=== PATIENT | female | born 1970 | race Caucasian/White ===

== ENCOUNTER 2019-06-23 20:49 | Emergency (ER) | payer MEDICAID, SELFPAY ==
[2019-06-23 20:50] VITALS: BP 129/86; PULSE 97; RESP 18; TEMP 36.3; O2SAT 98; BMI 34.3
--- NOTE | 2019-06-23 20:54 | RAD_ITS ---
STUDY: X-RAY - LEFT SHOULDER REASON FOR EXAM: Female, 48 years old. PAIN TECHNIQUE: 4 view(s) of the shoulder. COMPARISON: None. FINDINGS: Normal glenohumeral articulation. Normal acromioclavicular joint. Normal acromion. Normal humeral head and visualized proximal humerus. The soft tissue structures are unremarkable. Normal visualized pulmonary apex. RAD/Shoulder min 2 Views IMPRESSION: Within normal limits x-ray examination of the shoulder. Electronically Signed: Myesha Carter MD at 22:30 EST Tel , Service support ,
--- NOTE | 2019-06-23 23:04 | ED.DCSUM_ITS ---
- ER Visit Summary Date of Service: 06/23/19 Chief Complaint: Left shoulder pain History of Present Illness: The patient is a 48 F with left shoulder pain 2 weeks ago and then again over the last few days. The pain radiates into her left neck and she has paresthesias into her left forearm. Denies fever or systemic symptoms. Denies chest pain or shortness of breath. The only abnormal finding she had otherwise was a lump to her left scapular region. This came up fairly suddenly over the last couple days. Physical Examination: Afebrile and vital signs are unremarkable. Left shoulder shows normal inspection. Good range of motion. Neurovascular intact distally except for subjective paresthesias, primarily in her left forearm. Strong and equal pulses. Good strength. Skin normal. There is a palpable area of induration in the subcutaneous location over her left lateral scapula, approximately 2 to 3 cm in greatest diameter. This is slightly tender. The overlying skin is normal. Test Results: X-rays unremarkable. Emergency Department Course and Treatment: Patient has a soft tissue lesion. I do not believe this is causing her pain and paresthesias. I am not sure if this was an incidental finding given her pain, but the patient is confident that it is a new finding. Nothing to suggest abscess. This may be myofascial, possible small hematoma. No indication for further soft tissue imaging emergently. This may be managed as an outpatient. X-rays of her shoulder were unremarkable. Patient has no neck tenderness. No chest tenderness or pain. No shortness of breath. No further imaging was indicated. Patient likely has a radiculopathy. Patient will be treated with pain medicine. She cannot take steroids because of her diabetes and cannot take anti-inflammatories because they cause bleeding for her. She will follow-up with her PCP for outpatient management of this. Return for any new or worsening issues. Treatment Plan: As above Disposition: Discharge Impression: 1. Left shoulder pain This note was generated with [employer] software. It may contain incorrect words, spelling, and punctuation that were not noted in review of the chart prior to signing ED Disposition - Plan for ED Patient: Referrals: Ezekiel Huggins MD [Primary Care Provider] -
--- NOTE | 2019-06-23 23:07 | ED.DEP ---
ED Disposition - Plan for ED Patient: Instructions: Shoulder Sprain Prescriptions: Oxycodone HCl/Acetaminophen [Percocet 5/325] 1 tab PO Q6H PRN PRN 3 Days #12 tab PRN Reason: Pain Prescription Printed Referrals: Ezekiel Huggins MD [Primary Care Provider] -
[2019-06-23] MEDS: oxyCODONE 5 MG Tablet 10 MG PO (23:15)
== END 2019-06-23 23:35 | disposition home or self-care (01) ==
PROVIDERS: Emergency Provider Emergency Medicine; Family Provider Family Medicine; PCP Family Medicine
DX: M25.512 Pain in left shoulder (principal)
CPT/HCPCS: 73030; 99283

== ENCOUNTER 2020-05-13 20:22 | Emergency (ER) | payer MEDICAID, SELFPAY ==
[2020-05-13 20:23] VITALS: BP 130/75; PULSE 82; RESP 16; TEMP 35.5; O2SAT 99; BMI 33.0
--- NOTE | 2020-05-13 20:40 | ED.DCSUM_ITS ---
- ER Visit Summary Date of Service: 05/13/20 Chief Complaint: Dental pain History of Present Illness: The patient is a 49 F who presents with right-sided dental pain that is been constant for the past 3 weeks. Patient describes her pain is dull and throbbing but sharp at times. Patient states it is over the right upper and lower teeth area. Patient states she has followed up with her dentist to has adjusted her dentures. Patient states this has not been helping. Patient states she was on a course of antibiotics. Patient states she has been taking Tylenol and ibuprofen with no improvement. Patient states her pain is worse with any chewing. Patient also admits to cold sensitivity. Patient also admits to swelling of her jaw. Physical Examination: Vital signs are stable. Patient is afebrile. Patient is in no acute distress. Oral mucosa is pink and moist. Oropharynx is clear. Airway is patent. There are no exudates noted. There is some mild edema of the gingiva of the right upper and lower molar areas. There is no fluctuance. There is no evidence of any abscess. There is no sublingual edema or tenderness. There is no evidence of any Amador's angina. Neck is supple. Trachea is midline. There is no JVD or lymphadenopathy. Heart was regular rate and rhythm. Lungs are clear and equal bilaterally. Cranial nerves II through XII are intact. There are no focal motor or sensory deficits. Emergency Department Course and Treatment: Patient was given a dose of [place] and Augmentin here. Patient was given prescriptions for Augmentin and [place]. Patient was instructed to drink plenty of fluids. Patient was instructed to follow-up with her dentist in 3 to 5 days. Patient understood and was agreeable with the plan. All questions were answered. Disposition: Discharge home Impression: 1. Odontalgia This note was generated with [employer] dictation software. It may contain incorrect words, spelling, and punctuation that were not noted in review of the chart p rior to signing ED Disposition - Plan for ED Patient: Disposition: Home or Assisted Living Diagnosis: Odontalgia Instructions: ED Tooth Pain Prescriptions: Amox/Clavulanate Tablet [Augmentin Tablet] 875 mg PO Q12H #20 tab Prescription Printed Hydrocodone Bitart/Apap 5-325 [[place] 5MG-325MG] 1 tab PO Q6H PRN PRN 3 Days #10 tab PRN Reason: Pain Prescription Printed Referrals: Ezekiel Huggins MD [Primary Care Provider] - 3-5 Days Dentist,Your [STAFF PHYSICIAN] - 3-5 Days
[2020-05-13] MEDS: HYDROcodone Bitartrate/Apap 5/325 Tablet PO (20:48)
[2020-05-13] MEDS: Amox/Clavulanate 875 MG Tablet PO (20:48)
[2020-05-13 20:55] VITALS: RESP 16
== END 2020-05-13 20:56 | disposition home or self-care (01) ==
PROVIDERS: Emergency Provider Emergency Medicine; PCP Family Medicine
DX: K08.89 Other specified disorders of teeth and supporting structures (principal); R51.9 Headache, unspecified; M10.9 Gout, unspecified; M79.7 Fibromyalgia; M54.9 Dorsalgia, unspecified; G89.29 Other chronic pain; E03.9 Hypothyroidism, unspecified; E11.9 Type 2 diabetes mellitus without complications; F17.210 Nicotine dependence, cigarettes, uncomplicated
CPT/HCPCS: 99283

== ENCOUNTER 2021-01-02 13:13 | Emergency (ER) | payer MEDICAID, SELFPAY ==
[2021-01-02 13:14] VITALS: BP 99/67; PULSE 76; RESP 20; TEMP 36.6; O2SAT 98; BMI 32.9
[2021-01-02] MEDS: Ondansetron 4 MG/2 ML Vial IV (14:27)
[2021-01-02] MEDS: Dicyclomine 10 MG Capsule 20 MG PO (14:27)
[2021-01-02 14:43] LABS: Absolute Lymphocyte Count 2.67 X10^3/uL (0.83-4.51); Absolute Neutrophil Count 5.9 X10^3/uL (2.0-7.7); Basophil# 0.08 X10^3/uL; Basophil% 0.8 % (0-1); Eosinophil# 0.76 X10^3/uL; Eosinophils% 7.5 % (0-5); Hematocrit 51.5 % (37-47); Hemoglobin 17.2 g/dL (12.0-15.0); Lymphocyte # 2.67 X10^3/ul (0.83-4.51); Lymphocyte % 26.4 % (19-41); Mean Corp Hgb Conc 33.4 g/dL (32-36); Mean Corpuscular Hgb 31.3 pg (27.0-32.0); Mean Corpuscular Volume 93.6 fL (81-99); Mean Platelet Vol. 11.2 fl (6.2-12.0); Monocyte# 0.63 X10^3/uL; Monocyte% 6.2 % (0-10); NRBC Flagged by Analyzer 0 % (0-5); Neutrophil # 5.94 X10^3/uL (2.7-7.7); Neutrophil % 58.7 % (47-70); Platelet Count 234 K/mm3 (150-450); RBC Distribution Width CV 13.3 % (11.6-14.6); RBC Distribution Width SD 45.8 fl (35.1-43.9); White Blood Count 10.1 K/mm3 (4.4-11.0)
--- NOTE | 2021-01-02 14:49 | EDS_ITS ---
HPI HPI - GI History of Present Illness Chief Complaint: Abd Pain Informant: patient Abdominal Pain/Flank Pain Onset: Month(s) Context: Gradual Onset Timing: Continuous and Waxes and wanes Quality: Aching Location: RUQ and Right Flank Current Severity: Severe Maximum Severity: Severe Worsened by: Nothing Relieved by: Nothing Nausea/Vomiting/Emesis GI Symptom: Positive for Nausea; Negative for Vomiting Onset: Month(s) Severity: Moderate Diarrhea/Melena/Hematochezia GI Symptom: Positive for Diarrhea (X3 months. Patient's had extensive outpatient work-up. The only abnormality is a low TSH in October and November) Onset: Month(s) Stool Quality: Positive for Loose and Watery Severity: Severe Associated Symptoms Associated Symptoms: Negative for Dysuria, Frequency, Hematuria and Urgency Narrative Narrative: Patient is a 50-year-old heavyset woman who presents with abdominal pain for the past 3 months and diarrhea. She has had an extensive work-up which included ultrasound, blood work, stool for O&P, bacteria, C. difficile and antigen for celiac sprue. All tests were negative. The only test that is abnormal was a low TSH beginning of October and beginning of November. The level in November was even lower. Of note she is on levofloxacin. She has not had her dose change recently. She does report weight loss, heat intolerance as well as the abdominal pain with diarrhea. 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 She reports to gastroenterology has not called back. She has not had a colonoscopy nor she been scheduled for colonoscopy. Prior similar symptoms: Yes Recent Illness/Hospitalization: Yes [facility] Medical History Depression Diabetes Gout Hypothyroid Spinal cord stimulator status Home Medications albuterol sulfate 2 puff INHALATION Q4H PRN PRN 06/23/19 [History Last Taken Unknown] allopurinol 100 mg PO DAILY 06/23/19 [History Last Taken Unknown] levothyroxine 50 mcg PO DAILY 06/23/19 [History Last Taken Unknown] liraglutide 1 unit PO DAILY 06/23/19 [History Last Taken Unknown] metformin 1,000 mg PO DAILY 06/23/19 [History Last Taken Unknown] propranolol 40 mg PO BID 06/23/19 [History Last Taken Unknown] spironolactone 100 mg PO DAILY 06/23/19 [History Last Taken Unknown] zolpidem 10 mg PO DAILY 06/23/19 [History Last Taken Unknown] amoxicillin-pot clavulanate 875 mg PO Q12H #20 tab 05/13/20 [Rx Last Taken Unknown] sertraline 100 mg PO DAILY 05/13/20 [History Last Taken Unknown] levothyroxine 25 mcg PO DAILY #30 cap 01/02/21 [Rx Last Taken Unknown] Allergy/AdvReac Type Severity Reaction Status Date / Time pregabalin [From Lyrica] Allergy Hives Verified 01/02/21 13:15 adhesive tape AdvReac Rash Verified 01/02/21 13:15 duloxetine [From Cymbalta] AdvReac Hives Verified 01/02/21 13:15 NSAIDS (Non-Steroidal AdvReac Bleeding Verified 01/02/21 13:15 Anti-Inflamma Surgical History H/O: hysterectomy Social History (Updated 01/02/21 @ 14:[address] Sharan Francis MD) household members: spouse Smoking Status: Current every day smoker tobacco type: cigarettes alcohol intake: current alcohol intake frequency: holidays/special occasions only substance use type: does not use ROS ROS ED Constitutional Constitutional ED: Reports sweats and weight loss; Denies chills, fever(s) or subjective ENT ENT ED: Denies ear pain, rhinorrhea or sore throat Cardiovascular Cardiovascular: Denies chest pain, orthopnea, palpitations or racing heartbeat Respiratory/Chest Respiratory/Chest: Denies cough, dyspnea, dyspnea on exertion or orthopnea Gastrointestinal Gastrointestinal: Reports abdominal pain, diarrhea and nausea; Denies constipation, melena or vomiting Genitourinary Genitourinary ED: Denies dysuria, hematuria or urinary frequency Musculoskeletal Musculoskeletal: Denies arthralgias, back pain, myalgias or neck pain Integumentary Denies rash Neurologic Neurologic: Denies headache(s), paresthesias or weakness Psychiatric Psychiatric: Denies suicidal thoughts Endocrine Endocrinology: Reports other Details: Does admit to the heat intolerance. ; Denies polydipsia, polyphagia or polyuria Hematologic/Lymphatic Hematologic/Lymphatic: Denies easy bruising EXAM Physical Exam Const Vital Signs: 01/02/21 13:14 Temperature 97.8 F Temperature Source Temporal Pulse Rate 76 Respiratory Rate 20 H Blood Pressure 99/67 Blood Pressure Mean 77 Pulse Ox 98 Oxygen Delivery Method Room Air Positive well nourished, well developed and obese General Appearance ED: well developed; Negative for pallor Nutritional Appearance: obese HEENT Reports moist mucous membranes HEENT Narrative: Nares patent. Face is symmetric. normocephalic and atraumatic Eyes PERRL and EOMs intact bilaterally General Eye ED: Negative for pale conjunctiva or scleral icterus Neck no lymphadenopathy, supple and no JVD Resp normal respiratory effort and clear to auscultation bilaterally Cardio regular rate, regular rhythm, S1 normal heart sound, S2 normal heart sound and no murmurs GI non-tender and non-distended Auscultation: hyperactive bowel sounds; Negative for normoactive bowel sounds Palpation: soft; Negative for hepatomegaly or splenomegaly Back/Spine no CVA tenderness Lumbar Spine / Lower Back: Negative for lumbar spinal tenderness Extremity full ROM General Extremety ED: Negative for edema or tenderness General Extremity: Negative for edema Neuro CN's II-XII intact bilaterally, moves all extremities and no sensory deficits noted Sensorium / Orientation: alert, oriented to person, oriented to place and oriented to time Motor Exam: strength 5/5 throughout Psych mental status grossly normal Skin no wounds General Skin Exam: Negative for jaundice or pallor Lesions: no lesions Rashes: no rashes MDM MDM MDM Narrative Medical decision making narrative: Blood work was obtained to assess renal function, potassium in light of the amount of diarrhea. Suspect her symptoms are due to her thyroid medication not being adjusted since she has had low levels. Lab Data Attestation: I reviewed the patient's lab results. Lab results narrative: Patient's TSH today is lower than previous. Patient's symptoms are consistent with hyperthyroidism. She is presently on 50 mcg of levofloxacin. Patient was informed to discontinue the levofloxacin for 2 to 3 days. Will start on lower dose. Labs: Laboratory Results - last 24 hr 01/02/21 01/02/21 14:29 14:29 WBC 10.1 RBC 5.50 H Hgb 17.2 H Hct 51.5 H MCV 93.6 MCH 31.3 MCHC 33.4 RDW Std Deviation 45.8 H RDW Coeff of [place] 13.3 Plt Count 234 MPV 11.2 Immature Gran % (Auto) 0.400 Neut % (Auto) 58.7 Lymph % (Auto) 26.4 Towns % (Auto) 6.2 Eos % (Auto) 7.5 H Baso % (Auto) 0.8 Absolute Neuts (auto) 5.9 Absolute Lymphs (auto) 2.67 Nucleated RBC % 0 Sodium 135 L Potassium 4.0 Chloride 103 Carbon Dioxide 27.0 Anion Gap 5 BUN 13 Creatinine 0.86 Estim Creat Clear Calc 64.74 Est GFR (MDRD) Af Amer 90 Est GFR (MDRD) Non-Af 74 BUN/Creatinine Ratio 15.1 Glucose 124 H Calcium 9.5 TSH 0.16 L Discharge Plan Triage Chief Complaint: Abd Pain ED Provider: Sharan Francis Dx/Rx/DC Orders Clinical Impression: Hyperthyroidism Instructions: When You Have Hyperthyroidism, Thyroid-Stimulating Hormone Prescriptions: New levothyroxine 25 mcg capsule 25 mcg PO DAILY Qty: 30 RF: 0 No Action spironolactone 100 MG tablet 100 mg PO DAILY RF: 0 allopurinol 100 tablet 100 mg PO DAILY RF: 0 propranolol 40 MG tablet 40 mg PO BID RF: 0 levothyroxine 50 MCG tablet 50 mcg PO DAILY RF: 0 metformin 1,000 MG tablet 1,000 mg PO DAILY RF: 0 zolpidem 10 MG tablet 10 mg PO DAILY RF: 0 albuterol sulfate 1 PUFF inhaler 2 puff inhalation Q4H PRN PRN (Reason: Sob &/Or Wheezing) RF: 0 liraglutide 18 pen injector 1 unit PO DAILY RF: 0 sertraline 100 MG tablet 100 mg PO DAILY RF: 0 amoxicillin-pot clavulanate 875 MG tablet 875 mg PO Q12H Qty: 20 RF: 0 Primary Care Provider: Ezekiel Huggins Referrals: Ezekiel Huggins MD [Primary Care Provider] - 1-2 Weeks (TSH is low. Prior to TSH levels were low. Suspect patient's constellation symptoms is due to hyperthyroidism-like symptoms due to the levothyroxine. Her dose was held and restarted at lower level.) Activity Restrictions/Additional Instructions: 1. Discontinue the 50 mcg levothyroxine tablets 2. Resume new prescription for levothyroxine 25 mcg starting on Tuesday 3. Contact Dr. Huggins for blood test in 2 weeks Disposition Disposition: Home, Self Care
[2021-01-02 15:08] LABS: Anion Gap 5 (5-15); BUN 13 mg/dL (7-18); BUN/Creat Ratio 15.1 RATIO (10-20); Calcium,Total 9.5 mg/dL (8.5-10.1); Chloride 103 mmol/L (98-107); Creatinine, Serum 0.86 mg/dL (0.55-1.02); EST Glomerular Filtration Rate 74 mL/min (>60); Est Glom Filt Rate - Afr Amer 90 mL/min (>60); Estimated Creatinine Clearance 64.74 ml/min; Glucose 124 mg/dL (74-106); Sodium Level 135 mmol/L (136-145); Thyroid Stim Hormone (TSH) 0.16 uIU/mL (0.358-3.74)
[2021-01-02 16:48] VITALS: BP 96/64; PULSE 71; RESP 16; O2SAT 97
--- NOTE | 2021-01-02 16:49 | ED.RN ---
THIS NURSE REVIEWED D/C INSTRUCTIONS WITH PT. PT VERBALIZED UNDERSTANDING OF INSTRUCTIONS. IV D/C. IV CATHETER INTACT. PT TOLERATED WELL. PT DENIES FURTHER NEEDS OR QUESTIONS AT THIS TIME
== END 2021-01-02 16:49 | disposition home or self-care (01) ==
PROVIDERS: Emergency Provider Emergency Medicine; PCP Family Medicine
DX: E05.90 Thyrotoxicosis, unspecified without thyrotoxic crisis or storm (principal); E66.9 Obesity, unspecified; F17.210 Nicotine dependence, cigarettes, uncomplicated
CPT/HCPCS: 80048; 84443; 85025; 96374; 99283; A4216; J2405

== ENCOUNTER 2021-04-30 10:29 | Emergency (ER) | payer MEDICAID, SELFPAY ==
[2021-04-30 10:30] VITALS: BP 120/72; PULSE 89; RESP 16; TEMP 35.7; O2SAT 96; BMI 32.9
--- NOTE | 2021-04-30 10:59 | US_ITS ---
STUDY: ABDOMINAL ULTRASOUND - RIGHT UPPER QUADRANT REASON FOR VISIT: Female, 50 years old RUQ pain TECHNIQUE: Ultrasound evaluation of the right upper quadrant was performed with real-time and static headley-scale imaging. TECHNICAL QUALITY: Limited. The patient was not fasting. COMPARISON: None. FINDINGS: Liver: The liver is enlarged and measures 23 cm. There is increased echogenicity consistent with fatty infiltration. The bile ducts are within normal limits. There is hepatic color flow. The direction of portal flow is hepatopetal. There is no demonstrated mass lesion. Gallbladder: Normal distended gallbladder. The gallbladder wall measures 2.1 mm. There is a negative sonographic Zaman''s sign. There is no pericholecystic fluid. There are no gallstones. Common Bile Duct (C.B.D.): The common bile duct measures 3.8 mm. Pancreas: Normal size of the head, body and tail of the pancreas. There is normal echogenicity of the pancreas. There is no demonstrated pancreatic mass or cyst. Right Kidney: Normal size of the right kidney. The right kidney measures 12.6 cm x 5.3 cm x 4.4 cm. Normal renal cortex. The right cortex measures 1.2 cm. There is no demonstrated renal mass or cyst. There is no right hydronephrosis. US/Gallbladder IMPRESSION: Hepatomegaly and fatty infiltration of the liver. Electronically Signed: Curt Sparks MD at 12:08 EDT , Service support ,
[2021-04-30] MEDS: Ondansetron 4 MG/2 ML Vial IV (11:12)
[2021-04-30] MEDS: Morphine 4 MG/ML Syringe IV ×2 (11:12→13:16)
[2021-04-30 11:26] LABS: Bacteria 0 SEEN /hpf (None Seen); Mucous, Urine 0 SEEN /hpf (<or=2+); Red Blood Cells-Urine 0 SEEN /hpf (0-5); Squamous Epithelial Cells - UA 0 SEEN /hpf (5-10); White Blood Cells 0 SEEN /hpf (0-5)
[2021-04-30 11:31] LABS: Absolute Lymphocyte Count 2.24 X10^3/uL (0.83-4.51); Absolute Neutrophil Count 7.4 X10^3/uL (2.0-7.7); Basophil# 0.05 X10^3/uL; Basophil% 0.5 % (0-1); Eosinophil# 0.11 X10^3/uL; Eosinophils% 1.1 % (0-5); Hematocrit 48.7 % (37-47); Hemoglobin 16.1 g/dL (12.0-15.0); Lymphocyte # 2.24 X10^3/ul (0.83-4.51); Lymphocyte % 21.5 % (19-41); Mean Corp Hgb Conc 33.1 g/dL (32-36); Mean Corpuscular Hgb 31.2 pg (27.0-32.0); Mean Corpuscular Volume 94.4 fL (81-99); Mean Platelet Vol. 11.2 fl (6.2-12.0); Monocyte# 0.63 X10^3/uL; NRBC Flagged by Analyzer 0 % (0-5); Neutrophil # 7.35 X10^3/uL (2.7-7.7); Neutrophil % 70.5 % (47-70); Platelet Count 194 K/mm3 (150-450); RBC Distribution Width CV 13.3 % (11.6-14.6); RBC Distribution Width SD 46.4 fl (35.1-43.9); Red Blood Count 5.16 M/mm3 (4.2-5.4); White Blood Count 10.4 K/mm3 (4.4-11.0)
[2021-04-30 11:46] LABS: ALB/GLOB Ratio 0.8 RATIO (0.9-2.4); AST(SGOT) 29 U/L (15-37); Alanine Aminotransfer ALT/SGPT 71 U/L (13-56); Albumin, Serum 3.5 g/dL (3.2-5.0); Alkaline Phosphatase 96 U/L (45-117); Anion Gap 13 (5-15); BUN 15 mg/dL (7-18); BUN/Creat Ratio 13.6 RATIO (10-20); Calcium,Total 9.4 mg/dL (8.5-10.1); Chloride 100 mmol/L (98-107); EST Glomerular Filtration Rate 56 mL/min (>60); Est Glom Filt Rate - Afr Amer 68 mL/min (>60); Estimated Creatinine Clearance 50.61 ml/min; Globulin 4.3 g/dL (2.2-4.2); Glucose 321 mg/dL (74-106); Lipase 238 U/L (73-393); Potassium 4.2 mmol/L (3.5-5.1); Protein, Total 7.8 g/dL (6.4-8.2); Sodium Level 136 mmol/L (136-145)
[2021-04-30 11:52] LABS: Color, Urine Yellow (Yellow); Glucose, Dipstick 1000 mg/dl (Normal); Ketone-Dipstick Negative (Negative); Leukocyte Esterase-Dipstick Negative /ul (Negative); Nitrite-Dipstick Negative (Negative); Occult Blood-Urine Negative /ul (Negative); Protein-Dipstick Negative (Negative); Urine Bilirubin Dipstick Negative (Negative); Urine Clarity Clear (Clear); Urine Urobilinogen Normal (Normal)
[2021-04-30 12:48] VITALS: BP 107/66; O2SAT 92
--- NOTE | 2021-04-30 12:50 | EDS_ITS ---
HPI HPI - GI History of Present Illness Chief Complaint: Abd Pain Informant: patient Abdominal Pain/Flank Pain Onset: Month(s) (1-2) Context: Gradual Onset Timing: Waxes and wanes Quality: Aching Location: RUQ (With radiation into right low back as well as up to parascapular/shoulder area) Current Severity: Severe Maximum Severity: Severe Worsened by: Nothing Relieved by: Nothing Nausea/Vomiting/Emesis GI Symptom: Positive for Nausea; Negative for Vomiting Diarrhea/Melena/Hematochezia GI Symptom: Negative for Diarrhea, Melena and Hematochezia Associated Symptoms Associated Symptoms: Negative for Dysuria, Frequency, Hematuria and Urgency Narrative Narrative: Patient presenting for worsening right upper quadrant pain that has been there for several months. She states she was seen in an emergency department for this right upper quadrant pain and was told that it is probably my thyroid medication and that I should stop it, so I did. She has had outpatient testing including an ultrasound and a CT scans that have not showed the answer. She is following with GI, she had EGD and colonoscopy, she states she had some polyps removed and also has she had some abnormal areas in her stomach but nothing that apparently diagnosed the cause of this pain. She states her gallbladder did not have stones in it according to her doctor. She states she talked to her GI nurse practitioner today and she advised her to come to the ER to get a repeat ultrasound in case things changed. The ultrasound that she had that did not show stones patient states she had a couple months ago but it was not at this hospital. [facility] Medical History Depression Diabetes Gout Hypothyroid Spinal cord stimulator status Home Medications albuterol sulfate 2 puff INHALATION Q4H PRN PRN 06/23/19 [History Last Taken Unknown] allopurinol 100 mg PO DAILY 06/23/19 [History Last Taken Unknown] liraglutide 1 unit PO DAILY 06/23/19 [History Last Taken Unknown] metformin 1,000 mg PO BID 06/23/19 [History Last Taken Unknown] propranolol 40 mg PO BID 06/23/19 [History Last Taken Unknown] spironolactone 100 mg PO DAILY 06/23/19 [History Last Taken Unknown] zolpidem 10 mg PO DAILY 06/23/19 [History Last Taken Unknown] sertraline 100 mg PO DAILY 05/13/20 [History Last Taken Unknown] dicyclomine 20 mg PO .q4-6h PRN #20 capsule 04/30/21 [Rx Last Taken Unknown] empagliflozin [Jardiance] 10 mg PO DAILY 04/30/21 [History Last Taken Unknown] fluticasone propionate 1 spray INTRANASAL DAILY 04/30/21 [History Last Taken Unknown] omeprazole 40 mg PO DAILY 04/30/21 [History Last Taken Unknown] Allergy/AdvReac Type Severity Reaction Status Date / Time gabapentin Allergy Hives Verified 04/30/21 10:34 pregabalin [From Lyrica] Allergy Hives Verified 04/30/21 10:33 adhesive tape AdvReac Rash Verified 04/30/21 10:33 duloxetine [From Cymbalta] AdvReac Hives Verified 04/30/21 10:33 NSAIDS (Non-Steroidal AdvReac Bleeding Verified 04/30/21 10:33 Anti-Inflamma Surgical History H/O: hysterectomy Social History household members: spouse Smoking Status: Current every day smoker tobacco type: cigarettes alcohol intake: current alcohol intake frequency: holidays/special occasions only substance use type: does not use ROS ROS ED Constitutional Constitutional ED: Denies chills or fever(s) Eyes Eyes: Denies change in vision or diplopia ENT ENT ED: Denies rhinorrhea or sore throat Cardiovascular Cardiovascular: Denies chest pain or palpitations Respiratory/Chest Respiratory/Chest: Denies cough or dyspnea Gastrointestinal Gastrointestinal: Reports abdominal pain and nausea; Denies diarrhea or vomiting Genitourinary Genitourinary ED: Denies dysuria or hematuria Musculoskeletal Musculoskeletal: Reports back pain; Denies neck pain Integumentary Denies abscess or rash Neurologic Neurologic: Denies headache(s), paresthesias or weakness Psychiatric Psychiatric: Denies anxiety or suicidal thoughts EXAM Physical Exam Const Vital Signs: 04/30/21 10:30 04/30/21 12:48 Temperature 96.3 F L Temperature Source Temporal Pulse Rate 89 Respiratory Rate 16 Blood Pressure 120/72 107/66 Blood Pressure Mean 88 79 Pulse Ox 96 92 Oxygen Delivery Method Room Air Room Air Positive well nourished, well developed and obese General Appearance ED: well developed and NAD Nutritional Appearance: obese HEENT Reports moist mucous membranes normocephalic and atraumatic Eyes PERRL and EOMs intact bilaterally Neck full ROM and supple Resp normal respiratory effort and clear to auscultation bilaterally Cardio regular rate, regular rhythm and no murmurs GI non-distended GI Narrative: Patient very tender in the lateral subcostal right upper quadrant, with voluntary guarding. Otherwise her abdomen is benign, albeit limited by obesity. Auscultation: normoactive bowel sounds Palpation: soft; Negative for rebound tenderness present Back/Spine no CVA tenderness General Back: other FROM Extremity normal to inspection General Extremety ED: Negative for edema, pulses abnormal or tenderness General Extremity: Negative for edema or pulses abnormal Neuro oriented x3, CN's II-XII intact bilaterally and no sensory deficits noted Sensorium / Orientation: awake and alert Motor Exam: strength 5/5 throughout Skin no rashes or lesions noted and no wounds MDM MDM MDM Narrative Medical decision making narrative: Patient's labs are unremarkable except for her high blood sugar, she does have a history of diabetes, her urine is normal except for glucose urea, and the ultrasound does not show any stones, and there is a negative sonographic Zaman's and no pericholecystic fluid or other signs of acute cholecystitis. I initially gave her morphine and Zofran for her pain and nausea. She said it did not help at all and she required more medication. She was given another dose of morphine in addition to Bentyl and Toradol, understanding that she has bleeding due to NSAIDs listed as her allergy but certainly this is not an allergy and I think a small dose of Toradol would be unlikely to make her have life-threatening GI hemorrhage. With regards to her prior ED visit when she was told to discontinue her thyroid replacement medication, she seemed to have different symptoms and this was back in December which was more than 1 or 2 months ago, and at the time of that visit in December she was having symptoms for months already. She was having diarrhea and what appeared to be intestinal discomfort related to that, and some other hyperthyroid symptoms in context of a low TSH and many other tests that were normal at that time so it was recommended that she discontinue her thyroid medication due to that. The patient states that on Tuesday (today is ), she has an appointment with Dr. Lane with surgery. I discussed with her to make her aware of this patient, she asked if she is a marijuana/CBD user, the patient states she does not use any of those products. The plan is to get her pain under control and have her follow-up with that appointment. Lab Data Attestation: I reviewed the patient's lab results. Labs: Laboratory Results - last 24 hr 04/30/21 04/30/21 04/30/21 11:10 11:15 11:15 WBC 10.4 RBC 5.16 Hgb 16.1 H Hct 48.7 H MCV 94.4 MCH 31.2 MCHC 33.1 RDW Std Deviation 46.4 H RDW Coeff of [place] 13.3 Plt Count 194 MPV 11.2 Immature Gran % (Auto) 0.400 Neut % (Auto) 70.5 H Lymph % (Auto) 21.5 [place] % (Auto) 6.0 Eos % (Auto) 1.1 Baso % (Auto) 0.5 Absolute Neuts (auto) 7.4 Absolute Lymphs (auto) 2.24 Nucleated RBC % 0 Sodium 136 Potassium 4.2 Chloride 100 Carbon Dioxide 23.0 Anion Gap 13 BUN 15 Creatinine 1.10 H Estim Creat Clear Calc 50.61 Est GFR (MDRD) Af Amer 68 Est GFR (MDRD) Non-Af 56 L BUN/Creatinine Ratio 13.6 Glucose 321 H Calcium 9.4 Total Bilirubin 0.30 AST 29 ALT 71 H Alkaline Phosphatase 96 Total Protein 7.8 Albumin 3.5 Globulin 4.3 H Albumin/Globulin Ratio 0.8 L Lipase 238 Urine Color Yellow Urine Clarity Clear Urine pH 6.0 Ur Specific [place] 1.010 Urine Protein Negative Urine Glucose (UA) 1000 H Urine Ketones Negative Urine Occult Blood Negative Urine Nitrite Negative Urine Bilirubin Negative Urine Urobilinogen Normal Ur Leukocyte Esterase Negative Urine RBC 0 SEEN Urine WBC 0 SEEN Ur Squamous Epith Cells 0 SEEN Urine Bacteria 0 SEEN Urine Mucus 0 SEEN Radiography Diagnostic Testing: Clinical Impression(s) from Imaging Studies Gallbladder Ultrasound 04/30/21 10:59 IMPRESSION: Hepatomegaly and fatty infiltration of the liver. Electronically Signed: Curt Sparks MD at 12:08 EDT , Service support , Discharge Plan Triage Chief Complaint: Abd Pain ED Provider: Celestino Rosen Dx/Rx/DC Orders Clinical Impression: Abdominal pain, RUQ Instructions: ED Abdominal Pain Unkn Cause Fem Prescriptions: New dicyclomine 10 MG capsule 20 mg PO .q4-6h PRN (Reason: abdominal discomfort) Qty: 20 RF: 0 No Action spironolactone 100 MG tablet 100 mg PO DAILY RF: 0 allopurinol 100 tablet 100 mg PO DAILY RF: 0 propranolol 40 MG tablet 40 mg PO BID RF: 0 metformin 1,000 MG tablet 1,000 mg PO BID RF: 0 zolpidem 10 MG tablet 10 mg PO DAILY RF: 0 albuterol sulfate 1 PUFF inhaler 2 puff inhalation Q4H PRN PRN (Reason: Sob &/Or Wheezing) RF: 0 liraglutide 18 pen injector 1 unit PO DAILY RF: 0 sertraline 100 MG tablet 100 mg PO DAILY RF: 0 omeprazole 20 mg capsule,delayed release(DR/EC) 40 mg PO DAILY RF: 0 fluticasone propionate 50 mcg/actuation spray,suspension 1 spray INTRANASAL DAILY RF: 0 Jardiance 10 mg tablet 10 mg PO DAILY RF: 0 Primary Care Provider: Ezekiel Huggins Referrals: Ezekiel Huggins MD [Primary Care Provider] - Disposition Disposition: Home, Self Care
[2021-04-30] MEDS: Dicyclomine 20 MG/2 ML Vial IM (13:16)
[2021-04-30] MEDS: Ketorolac 15 MG/ML Vial IV (13:16)
[2021-04-30 13:38] VITALS: BP 113/69; PULSE 71; RESP 16; O2SAT 96
== END 2021-04-30 13:50 | disposition home or self-care (01) ==
PROVIDERS: Emergency Provider Emergency Medicine; PCP Family Medicine
DX: R10.11 Right upper quadrant pain (principal); K76.0 Fatty (change of) liver, not elsewhere classified; E11.9 Type 2 diabetes mellitus without complications; E66.9 Obesity, unspecified; F32.A Depression, unspecified; E03.9 Hypothyroidism, unspecified; M10.9 Gout, unspecified; F17.210 Nicotine dependence, cigarettes, uncomplicated; Z79.1 Long term (current) use of non-steroidal anti-inflammatories (NSAID); Z79.84 Long term (current) use of oral hypoglycemic drugs; Z79.899 Other long term (current) drug therapy
CPT/HCPCS: 76705; 80053; 81001; 83690; 85025; 96372; 96374; 96375; 96376; 99283; J7050; A4216; J2405

== ENCOUNTER 2021-05-08 22:40 | Emergency (ER) | payer MEDICAID, SELFPAY ==
[2021-05-08 22:40] VITALS: BP 129/84; PULSE 85; RESP 16; TEMP 36.4; O2SAT 99; BMI 32.9
--- NOTE | 2021-05-08 22:54 | EDS_ITS ---
HPI HPI - GI History of Present Illness Chief Complaint: Abd Pain Informant: patient Abdominal Pain/Flank Pain Onset: Month(s) Context: Gradual Onset Timing: Continuous Quality: Burning and Sharp Location: Epigastric, RUQ and LUQ Current Severity: Severe Maximum Severity: Severe Worsened by: Nothing Relieved by: Nothing Nausea/Vomiting/Emesis GI Symptom: Positive for Nausea; Negative for Vomiting Diarrhea/Melena/Hematochezia GI Symptom: Positive for Diarrhea; Negative for Melena and Hematochezia Associated Symptoms Associated Symptoms: Negative for Dysuria, Frequency and Hematuria Narrative Narrative: Patient presents with right upper quadrant abdominal pain that has been getting worse over the past few months. Patient states it became severe tonight. Patient states she is scheduled for cholecystectomy later this week. Patient states her pain is over the upper abdomen but worse on the right. Patient describes it as sharp and burning. Patient admits to nausea but denies any vomiting. Patient admits to diarrhea but denies any hematemesis or coffee- ground emesis. Patient denies any dysuria, hematuria, or frequency. Patient states nothing makes her pain better and nothing makes it worse. [facility] Medical History Depression Diabetes Gout Hypothyroid Spinal cord stimulator status Home Medications albuterol sulfate 2 puff INHALATION Q4H PRN PRN 06/23/19 [History Last Taken Unknown] allopurinol 100 mg PO DAILY 06/23/19 [History Last Taken Unknown] liraglutide 1 unit PO DAILY 06/23/19 [History Last Taken Unknown] metformin 1,000 mg PO BID 06/23/19 [History Last Taken Unknown] propranolol 40 mg PO BID 06/23/19 [History Last Taken Unknown] spironolactone 100 mg PO DAILY 06/23/19 [History Last Taken Unknown] zolpidem 10 mg PO DAILY 06/23/19 [History Last Taken Unknown] sertraline 100 mg PO DAILY 05/13/20 [History Last Taken Unknown] dicyclomine 20 mg PO .q4-6h PRN #20 capsule 04/30/21 [Rx Last Taken Unknown] empagliflozin [Jardiance] 10 mg PO DAILY 04/30/21 [History Last Taken Unknown] fluticasone propionate 1 spray INTRANASAL DAILY 04/30/21 [History Last Taken Unknown] omeprazole 40 mg PO DAILY 04/30/21 [History Last Taken Unknown] melatonin 10 mg PO QHS 05/08/21 [History Last Taken Unknown] oxycodone-acetaminophen 1 tab PO Q6H PRN PRN 3 Days #12 tablet 05/09/21 [Rx Last Taken Unknown] Allergy/AdvReac Type Severity Reaction Status Date / Time gabapentin Allergy Hives Verified 05/08/21 22:41 pregabalin [From Lyrica] Allergy Hives Verified 05/08/21 22:41 tramadol [From Ultram] Allergy Rash Verified 05/08/21 22:42 adhesive tape AdvReac Rash Verified 05/08/21 22:41 duloxetine [From Cymbalta] AdvReac Hives Verified 05/08/21 22:41 NSAIDS (Non-Steroidal AdvReac Bleeding Verified 05/08/21 22:41 Anti-Inflamma Surgical History H/O: hysterectomy Social History household members: spouse Smoking Status: Current every day smoker tobacco type: cigarettes alcohol intake: current alcohol intake frequency: holidays/special occasions only substance use type: does not use ROS ROS ED Constitutional Constitutional ED: Reports fever(s) and subjective; Denies chills Eyes Eyes: Denies blurry vision or change in vision ENT ENT ED: Denies rhinorrhea or sore throat Cardiovascular Cardiovascular: Reports palpitations; Denies chest pain Respiratory/Chest Respiratory/Chest: Denies cough or dyspnea Gastrointestinal Gastrointestinal: Reports abdominal pain, diarrhea and nausea; Denies melena or vomiting Genitourinary Genitourinary ED: Denies dysuria or hematuria Musculoskeletal Musculoskeletal: Reports back pain; Denies neck pain Integumentary Denies abscess or rash Neurologic Neurologic: Denies headache(s) or weakness Allergic/Immunologic Allergic/Immunologic ED: Denies mouth swelling or urticaria EXAM Physical Exam Const Vital Signs: 05/08/21 22:40 Temperature 97.6 F L Temperature Source Temporal Pulse Rate 85 Respiratory Rate 16 Blood Pressure 129/84 H Blood Pressure Mean 99 Pulse Ox 99 Positive well nourished and well developed General Appearance ED: well developed HEENT Reports moist mucous membranes Neck supple and no JVD Resp normal respiratory effort and clear to auscultation bilaterally Cardio regular rate, regular rhythm and no murmurs GI normal to inspection, nondistended, normoactive bowel sounds Palpation: soft and tender epigastric, LUQ and RUQ; Negative for guarding or rebound tenderness present Extremity normal to inspection General Extremety ED: Negative for edema or tenderness General Extremity: Negative for edema Neuro oriented x3, CN's II-XII intact bilaterally and no sensory deficits noted Sensorium / Orientation: alert Motor Exam: strength 5/5 throughout Psych mental status grossly normal Skin no rashes or lesions noted MDM MDM MDM Narrative Medical decision making narrative: Patient was given IV fluids, morphine, and Zofran. CBC was within normal limits. Comprehensive metabolic profile was essentially within normal limits with the exception of a slightly elevated glucose of 268. Lipase was normal. Urinalysis does not show any evidence of u rinary tract infection. Patient was still having some abdominal pain on reevaluation. Patient was given a dose of Dilaudid. Patient was advised of her findings. Patient was instructed to follow-up with her surgeon as scheduled. Patient was advised to continue a bland diet. Patient was instructed to avoid fatty foods, fried foods, greasy foods. Patient was given a prescription for Percocet. Patient was instructed to return if worse in any way. Patient understood and was agreeable with the plan. All questions were answered. Lab Data Attestation: I reviewed the patient's lab results. Labs: Laboratory Results - last 24 hr 05/08/21 05/08/21 05/08/21 23:10 23:11 23:11 WBC 10.7 RBC 4.94 Hgb 15.6 H Hct 46.8 MCV 94.7 MCH 31.6 MCHC 33.3 RDW Std Deviation 46.8 H RDW Coeff of [place] 13.5 Plt Count 220 MPV 11.4 Immature Gran % (Auto) 1.200 H Neut % (Auto) 62.2 Lymph % (Auto) 28.5 [place] % (Auto) 6.8 Eos % (Auto) 0.8 Baso % (Auto) 0.5 Absolute Neuts (auto) 6.7 Absolute Lymphs (auto) 3.05 Nucleated RBC % 0 Sodium 135 L Potassium 4.2 Chloride 102 Carbon Dioxide 26.0 Anion Gap 7 BUN 15 Creatinine 0.97 Estim Creat Clear Calc 57.40 Est GFR (MDRD) Af Amer 78 Est GFR (MDRD) Non-Af 65 BUN/Creatinine Ratio 15.5 Glucose 268 H Calcium 9.3 Total Bilirubin 0.20 AST 37 ALT 74 H Alkaline Phosphatase 91 Total Protein 7.6 Albumin 3.7 Globulin 3.9 Albumin/Globulin Ratio 0.9 Lipase 188 Urine Color Yellow Urine Clarity Sl. Cloudy Urine pH 7.0 Ur Specific [place] 1.010 Urine Protein Negative Urine Glucose (UA) 1000 H Urine Ketones Negative Urine Occult Blood Negative Urine Nitrite Negative Urine Bilirubin Negative Urine Urobilinogen Normal Ur Leukocyte Esterase Negative Urine RBC 0 SEEN Urine WBC 0 SEEN Ur Squamous Epith Cells 0-5 SEEN Urine Bacteria RARE Urine Mucus 0 SEEN Discharge Plan Triage Chief Complaint: Abd Pain ED Provider: Cy Rob Dx/Rx/DC Orders Clinical Impression: Right upper quadrant abdominal pain Instructions: ED Gallstones with Biliary Colic Prescriptions: New oxycodone-acetaminophen [oxycodone-acetaminophen] 1 TABLET tablet 1 tab PO Q6H PRN PRN (Reason: Pain) 3 Days Qty: 12 RF: 0 No Action spironolactone 100 MG tablet 100 mg PO DAILY RF: 0 allopurinol 100 tablet 100 mg PO DAILY RF: 0 propranolol 40 MG tablet 40 mg PO BID RF: 0 metformin 1,000 MG tablet 1,000 mg PO BID RF: 0 zolpidem 10 MG tablet 10 mg PO DAILY RF: 0 albuterol sulfate 1 PUFF inhaler 2 puff inhalation Q4H PRN PRN (Reason: Sob &/Or Wheezing) RF: 0 liraglutide 18 pen injector 1 unit PO DAILY RF: 0 sertraline 100 MG tablet 100 mg PO DAILY RF: 0 omeprazole 20 mg capsule,delayed release(DR/EC) 40 mg PO DAILY RF: 0 fluticasone propionate 50 mcg/actuation spray,suspension 1 spray INTRANASAL DAILY RF: 0 Jardiance 10 mg tablet 10 mg PO DAILY RF: 0 dicyclomine 10 MG capsule 20 mg PO .q4-6h PRN (Reason: abdominal discomfort) Qty: 20 RF: 0 melatonin 10 mg Tablet 10 mg PO QHS RF: 0 Primary Care Provider: Ezekiel Huggins Referrals: Ezekiel Huggins MD [Primary Care Provider] -
[2021-05-08 23:18] LABS: Mucous, Urine 0 SEEN /hpf (<or=2+); Red Blood Cells-Urine 0 SEEN /hpf (0-5); White Blood Cells 0 SEEN /hpf (0-5)
[2021-05-08] MEDS: 0.9% Normal Saline 1,000 ML 1000 ML IV (23:23)
[2021-05-08] MEDS: Morphine 4 MG/ML Syringe IV (23:23)
[2021-05-08] MEDS: Ondansetron 4 MG/2 ML Vial IV (23:23)
[2021-05-08 23:24] LABS: Absolute Lymphocyte Count 3.05 X10^3/uL (0.83-4.51); Absolute Neutrophil Count 6.7 X10^3/uL (2.0-7.7); Basophil# 0.05 X10^3/uL; Basophil% 0.5 % (0-1); Eosinophil# 0.09 X10^3/uL; Eosinophils% 0.8 % (0-5); Hematocrit 46.8 % (37-47); Hemoglobin 15.6 g/dL (12.0-15.0); Lymphocyte # 3.05 X10^3/ul (0.83-4.51); Lymphocyte % 28.5 % (19-41); Mean Corp Hgb Conc 33.3 g/dL (32-36); Mean Corpuscular Hgb 31.6 pg (27.0-32.0); Mean Corpuscular Volume 94.7 fL (81-99); Mean Platelet Vol. 11.4 fl (6.2-12.0); Monocyte# 0.73 X10^3/uL; Monocyte% 6.8 % (0-10); NRBC Flagged by Analyzer 0 % (0-5); Neutrophil # 6.66 X10^3/uL (2.7-7.7); Neutrophil % 62.2 % (47-70); Platelet Count 220 K/mm3 (150-450); RBC Distribution Width CV 13.5 % (11.6-14.6); RBC Distribution Width SD 46.8 fl (35.1-43.9); Red Blood Count 4.94 M/mm3 (4.2-5.4); White Blood Count 10.7 K/mm3 (4.4-11.0)
[2021-05-08 23:25] LABS: Color, Urine Yellow (Yellow); Glucose, Dipstick 1000 mg/dl (Normal); Ketone-Dipstick Negative (Negative); Leukocyte Esterase-Dipstick Negative /ul (Negative); Nitrite-Dipstick Negative (Negative); Occult Blood-Urine Negative /ul (Negative); Protein-Dipstick Negative (Negative); Urine Bilirubin Dipstick Negative (Negative); Urine Clarity Sl. Cloudy (Clear); Urine Urobilinogen Normal (Normal)
[2021-05-08 23:39] LABS: Bacteria RARE /hpf (None Seen); Squamous Epithelial Cells - UA 0-5 SEEN /hpf (5-10)
[2021-05-08 23:47] LABS: ALB/GLOB Ratio 0.9 RATIO (0.9-2.4); AST(SGOT) 37 U/L (15-37); Alanine Aminotransfer ALT/SGPT 74 U/L (13-56); Albumin, Serum 3.7 g/dL (3.2-5.0); Alkaline Phosphatase 91 U/L (45-117); Anion Gap 7 (5-15); BUN 15 mg/dL (7-18); BUN/Creat Ratio 15.5 RATIO (10-20); Calcium,Total 9.3 mg/dL (8.5-10.1); Chloride 102 mmol/L (98-107); Creatinine, Serum 0.97 mg/dL (0.55-1.02); EST Glomerular Filtration Rate 65 mL/min (>60); Est Glom Filt Rate - Afr Amer 78 mL/min (>60); Globulin 3.9 g/dL (2.2-4.2); Glucose 268 mg/dL (74-106); Lipase 188 U/L (73-393); Potassium 4.2 mmol/L (3.5-5.1); Protein, Total 7.6 g/dL (6.4-8.2); Sodium Level 135 mmol/L (136-145)
[2021-05-09] MEDS: HYDROmorphone 1 MG/ML Syringe 0.5 MG IV (00:32)
[2021-05-09 00:52] VITALS: BP 121/74; PULSE 81; RESP 16; O2SAT 100
== END 2021-05-09 00:55 | disposition home or self-care (01) ==
LOC: ED 22:57
PROVIDERS: Emergency Provider Emergency Medicine; PCP Family Medicine
DX: R10.11 Right upper quadrant pain (principal); R11.0 Nausea; R19.7 Diarrhea, unspecified; M10.9 Gout, unspecified; E03.9 Hypothyroidism, unspecified; E11.9 Type 2 diabetes mellitus without complications; F32.9 Major depressive disorder, single episode, unspecified; F17.210 Nicotine dependence, cigarettes, uncomplicated; Z79.1 Long term (current) use of non-steroidal anti-inflammatories (NSAID); Z79.84 Long term (current) use of oral hypoglycemic drugs
CPT/HCPCS: 80053; 81001; 83690; 85025; 96361; 96374; 96375; 99283; J7030; A4216; J2405

== ENCOUNTER 2021-11-15 19:57 | Emergency (ER) | payer MEDICAID, SELFPAY ==
[2021-11-15 19:58] VITALS: BP 111/61; PULSE 87; RESP 16; TEMP 36.3; O2SAT 98; BMI 33.6
--- NOTE | 2021-11-15 20:35 | EX.ED.GENINJ ---
HPI History of Present Illness Chief Complaint: Bite Detail of Chief Complaint: Insect sting to left hand Informant: patient Narrative Narrative: Patient presents to the emergency department complaint of a insect bite to the left hand that occurred about an hour and a half ago. Patient states that she was pulling some fake lux out of a pot outside when she was stung by something. Patient complains of severe pain and numbness to the hand. She denies lip or tongue swelling or trouble breathing. She did not take anything for the pain and came here to be evaluated. [facility] Medical History Depression Diabetes Gout Hypothyroid Spinal cord stimulator status Home Medications albuterol sulfate 2 puff INHALATION Q4H PRN PRN 06/23/19 [History Last Taken Unknown] allopurinol [Zyloprim] 100 mg PO DAILY 06/23/19 [History Last Taken Unknown] liraglutide 1 unit PO DAILY 06/23/19 [History Last Taken Unknown] propranolol 40 mg PO BID 06/23/19 [History Last Taken Unknown] spironolactone 100 mg PO DAILY 06/23/19 [History Last Taken Unknown] zolpidem 10 mg PO DAILY 06/23/19 [History Last Taken Unknown] sertraline 100 mg PO DAILY 05/13/20 [History Last Taken Unknown] empagliflozin [Jardiance] 10 mg PO DAILY 04/30/21 [History Last Taken Unknown] fluticasone propionate 1 spray INTRANASAL DAILY 04/30/21 [History Last Taken Unknown] omeprazole 40 mg PO DAILY 04/30/21 [History Last Taken Unknown] melatonin 10 mg PO QHS 05/08/21 [History Last Taken Unknown] glimepiride 2 mg PO DAILY 11/15/21 [History Last Taken Unknown] hydrocodone-acetaminophen 1 tab PO Q4H PRN PRN 2 Days #4 tablet 11/15/21 [Rx Last Taken Unknown] Allergy/AdvReac Type Severity Reaction Status Date / Time gabapentin Allergy Hives Verified 11/15/21 19:58 pregabalin [From Lyrica] Allergy Hives Verified 11/15/21 19:58 tramadol [From Ultram] Allergy Rash Verified 11/15/21 19:58 adhesive tape AdvReac Rash Verified 11/15/21 19:58 duloxetine [From Cymbalta] AdvReac Hives Verified 11/15/21 19:58 NSAIDS (Non-Steroidal AdvReac Bleeding Verified 11/15/21 19:58 Anti-Inflamma Surgical History H/O: hysterectomy Social History household members: spouse Smoking Status: Current every day smoker tobacco type: cigarettes alcohol intake: current alcohol intake frequency: holidays/special occasions only substance use type: does not use ROS ROS ED Constitutional Constitutional ED: Reports systems reviewed and no addt'l complaints, except as documented; Denies body ache(s), change in weight or chills Eyes Eyes: Denies acute decrease in peripheral vision, change in vision, double vision or loss of vision ENT ENT ED: Reports none; Denies ear pain, lip swelling, loss taste/smell, neck pain, otalgia or sore throat Cardiovascular Cardiovascular: Reports none; Denies abdominal pain, chest pain with activity, leg edema, lightheadedness, palpitations, rapid heart rate or syncope Respiratory/Chest Respiratory/Chest: Reports none; Denies change in mental status, dry cough, dyspnea, hemoptysis, shortness of breath at rest or shortness of breath with exertion Gastrointestinal Gastrointestinal: Reports none; Denies abdominal pain, change in stool character, diarrhea, hematemesis, hematochezia, melena, rectal bleeding or vomiting Genitourinary Genitourinary ED: Reports none; Denies abdominal discomfort, anuria, dysuria, genital pain or polyuria Musculoskeletal Musculoskeletal: Reports none and other Details: Left hand pain ; Denies arthralgias, back pain, difficulty walking, extremity pain, muscle weakness or myalgias Integumentary Reports none; Denies abscess or rash Neurologic Neurologic: Reports none; Denies abnormal gait, confusion, focal weakness, frequent falls, headache(s), loss of vision, numbness, paresthesias, radicular pain, vertigo or weakness Psychiatric Psychiatric: Reports systems reviewed and no addt'l complaints, except as documented and none; Denies behavioral changes, confusion, difficulty concentrating, hallucinations, suicidal ideation, tactile hallucinations or visual hallucinations Endocrine Endocrinology: Denies none, cold intolerance, excessive sweating, fatigue or heat intolerance Hematologic/Lymphatic Hematologic/Lymphatic: Reports none; Denies anemia, easy bleeding or easy bruising Allergic/Immunologic Allergic/Immunologic ED: Denies as per HPI, none, lip swelling, mouth swelling, throat swelling, tongue swelling or hives EXAM Physical Exam Const Vital Signs: 11/15/21 19:58 Temperature 97.3 F L Temperature Source Temporal Pulse Rate 87 Respiratory Rate 16 Blood Pressure 111/61 Blood Pressure Mean 77 Pulse Ox 98 Oxygen Delivery Method Room Air Positive well nourished and well developed General Appearance ED: well developed and NAD HEENT Reports TM's clear and moist mucous membranes normocephalic and atraumatic; Negative for trauma or tenderness Tympanic Membrane ED: Yes TM's clear Eyes PERRL and EOMs intact bilaterally General Eye ED: Negative for pale conjunctiva or scleral icterus Neck no lymphadenopathy, supple and no JVD General: Negative for tenderness Chest Wall inspection of chest normal and palpation of chest normal Chest: Negative for tenderness Resp normal respiratory effort and clear to auscultation bilaterally Effort and Inspection: Negative for respiratory distress or pain with movement Auscultation: Negative for rhonchi, wheezes or diminished lung sounds Cardio regular rate, regular rhythm, S1 normal heart sound, S2 normal heart sound and no murmurs Peripheral Pulses: pulses 2+ throughout GI normal to inspection, nondistended, normoactive bowel sounds, soft to palpation, non-tender, non-distended and no masses Back/Spine no CVA tenderness and no thoracic nor lumbar tenderness Extremity Extremity Narrative: Evaluation of the left hand is revealed a area in the webspace between the thumb and index finger with some blanching and slightly raised consistent with an insect sting. No foreign body or significant puncture wound noted. Patient has normal range of motion of all digits. She is neurovascular intact. General Extremety ED: Negative for edema General Extremity: Negative for edema Neuro oriented x3, CN's II-XII intact bilaterally, no sensory deficits noted and gait normal Sensorium / Orientation: awake, alert, oriented to person, oriented to place and oriented to time Motor Exam: strength 5/5 throughout and strength abnormal Psych mental status grossly normal Skin no rashes or lesions noted and no wounds MDM MDM MDM Narrative Medical decision making narrative: PCOS patient complained of some itching to the hand she was given Benadryl 25 mg p.o. as well as 1 [place] and she states she cannot take NSAIDs. Patient has no signs or symptoms of anaphylaxis. Advised to use ice to the area. I will write her prescription for a few [place] and advised to follow-up with her primary care physician as needed. Patient advised to return if increased pain, swelling, fever, redness, or condition should worsen anyway. Discharge Plan Triage Chief Complaint: Bite ED Provider: Kelsie Tello Dx/Rx/DC Orders Clinical Impression: Sting, insect Instructions: Insect Bites and Stings Prescriptions: New hydrocodone-acetaminophen [hydrocodone-acetaminophen] 1 TABLET tablet 1 tab PO Q4H PRN PRN (Reason: Pain) 2 Days Qty: 4 RF: 0 No Action spironolactone 100 MG tablet 100 mg PO DAILY RF: 0 allopurinol [Zyloprim] 100 tablet 100 mg PO DAILY RF: 0 propranolol 40 MG tablet 40 mg PO BID RF: 0 zolpidem 10 MG tablet 10 mg PO DAILY RF: 0 albuterol sulfate 1 PUFF inhaler 2 puff inhalation Q4H PRN PRN (Reason: Sob &/Or Wheezing) RF: 0 liraglutide 18 pen injector 1 unit PO DAILY RF: 0 sertraline 100 MG tablet 100 mg PO DAILY RF: 0 omeprazole 20 mg capsule,delayed release(DR/EC) 40 mg PO DAILY RF: 0 fluticasone propionate 50 mcg/actuation spray,suspension 1 spray INTRANASAL DAILY RF: 0 Jardiance 10 mg tablet 10 mg PO DAILY RF: 0 melatonin 10 mg Tablet 10 mg PO QHS RF: 0 glimepiride 2 mg tablet 2 mg PO DAILY RF: 0 Primary Care Provider: Ezekiel Huggins Referrals: Ezekiel Huggins MD [Primary Care Provider] - 3-5 Days Disposition Disposition: Home, Self Care
[2021-11-15] MEDS: HYDROcodone Bitartrate/Apap 5/325 Tablet PO (20:40)
[2021-11-15] MEDS: DiphenhydrAMINE 25 MG Capsule PO (20:40)
[2021-11-15 20:41] VITALS: BP 111/61; PULSE 87; RESP 16; O2SAT 98
== END 2021-11-15 21:15 | disposition home or self-care (01) ==
LOC: ED 20:41
PROVIDERS: Emergency Provider Emergency Medicine; PCP Family Medicine; Visit Provider Emergency Medicine
DX: R20.0 Anesthesia of skin (principal); E11.9 Type 2 diabetes mellitus without complications; T63.891A Toxic effect of contact with other venomous animals, accidental (unintentional), initial encounter; F17.210 Nicotine dependence, cigarettes, uncomplicated; E03.9 Hypothyroidism, unspecified; M10.9 Gout, unspecified; F32.A Depression, unspecified
CPT/HCPCS: 99283

== ENCOUNTER 2022-04-02 22:15 | Emergency (ER) | payer MEDICAID, SELFPAY ==
--- NOTE | 2022-04-02 00:01 | RAD_ITS ---
STUDY: X-RAY - LEFT FEMUR REASON FOR STUDY: Female, 51 years old. Trauma PT FELL FROM LADDER IN BATHROOM, PAIN FROM KNEE DOWN TECHNIQUE: 4 view(s) of the femur. COMPARISON: None. FINDINGS: BONES: No fracture demonstrated. JOINTS: No dislocation. SOFT TISSUES: Unremarkable. RAD/Femur Min 2 Views IMPRESSION: No evidence of fracture. Electronically Signed: Virginia Ruiz MD at 0:57 EDT ,
[2022-04-02 22:21] VITALS: BP 134/77; PULSE 87; RESP 19; TEMP 35.9; O2SAT 98
[2022-04-02 22:22] VITALS: BP 134/77; PULSE 90; RESP 16; TEMP 35.9; O2SAT 93; BMI 33.7
[2022-04-02 23:08] VITALS: BP 150/87
--- NOTE | 2022-04-02 23:40 | RAD_ITS ---
STUDY: X-RAY - LEFT TIBIA AND FIBULA REASON FOR EXAM: Female, 51 years old. Trauma PT FELL FROM LADDER IN BATHROOM, PAIN FROM KNEE DOWN TECHNIQUE: 4 view(s) of the tibia and fibula were obtained. COMPARISON: None. FINDINGS: BONES: No fracture demonstrated. Suboptimal evaluation of the distal tibia/medial malleolus secondary to positioning. Calcaneal spur at the Achilles insertion site. JOINTS: No dislocation. SOFT TISSUES: Mild soft tissue swelling overlying the lateral malleolus. RAD/Tibia & Fibula 2 Views IMPRESSION: No definite evidence of fracture. Suboptimal evaluation of the distal tibia/medial malleolus. Mild soft tissue swelling laterally at the ankle. Dedicated ankle series may be helpful if clinically indicated. Electronically Signed: Virginia Ruiz MD at 0:52 EDT ,
--- NOTE | 2022-04-02 23:40 | RAD_ITS ---
STUDY: X-RAY - THORACIC SPINE REASON FOR EXAM: Female, 51 years old. Trauma PT FELL FROM LADDER IN BATHROOM, PAIN FROM MIDDLE BACK AND UP TECHNIQUE: 3 view(s) of the thoracic spine were obtained. COMPARISON: None. FINDINGS: Vertebral bodies are normal in height. No definite fracture demonstrated. No subluxation. Mild disc space narrowing with osteophytes throughout most levels. No paravertebral soft tissue mass identified. Device/stimulator leads overlying the mid thoracic spine. RAD/Thoracic Spine 3 Views IMPRESSION: No evidence of fracture or subluxation. Electronically Signed: Virginia Ruiz MD at 0:56 EDT ,
[2022-04-02] MEDS: HYDROcodone Bitartrate/Apap 5/325 Tablet PO (23:47)
--- NOTE | 2022-04-03 00:31 | EX.ED.DYSGE1 ---
HPI History of Present Illness Chief Complaint: Lower Extremity Injury Informant: patient Narrative Narrative: Patient had a mechanical slip and fall about 230 this afternoon. She was stepping down from the third rung of a ladder and missed the step. She was in a small bathroom. She fell against the wall and structures in the bathroom. She took the toilet paper roll off the wall. The roll itself actually went onto the ground and when her head hit the ground it was on the toilet paper roll so she did not actually hurt her head. She has some discomfort in the upper thoracic spine area and she has pain mostly in the left lateral fibula area. She has a history of back pain has a nerve stimulator in. But she is not having any exacerbation of lower back pain. No trouble breathing. No nausea vomiting. No blood in the urine. She has been eating and drinking normally. No weakness but bearing weight hurts the left leg more. She does have some pain up toward the left hip. No upper extremity pain. No numbness tingling or weakness noted. [facility] Medical History Depression Diabetes Gout Hypothyroid Spinal cord stimulator status Home Medications albuterol sulfate 90 mcg/actuation aerosol inhaler 2 puff inhalation Q4H PRN PRN Sob &/Or Wheezing 06/23/19 [History Last Taken Unknown] allopurinol 100 mg tablet (Zyloprim) 100 mg PO DAILY 06/23/19 [History Last Taken Unknown] propranolol 40 mg tablet 40 mg PO BID 06/23/19 [History Last Taken Unknown] zolpidem 10 mg tablet 10 mg PO DAILY 06/23/19 [History Last Taken Unknown] sertraline 100 mg tablet 100 mg PO DAILY 05/13/20 [History Last Taken Unknown] fluticasone propionate 50 mcg/actuation nasal spray,suspension 1 spray intranasal DAILY 04/30/21 [History Last Taken Unknown] omeprazole 20 mg capsule,delayed release 40 mg PO DAILY 04/30/21 [History Last Taken Unknown] melatonin 10 mg tablet 10 mg PO QHS 05/08/21 [History Last Taken Unknown] glimepiride 2 mg tablet 2 mg PO DAILY 11/15/21 [History Last Taken Unknown] liraglutide 0.6 mg/0.1 mL (18 mg/3 mL) subcutaneous pen injector ([employer] 3-Donnie) 1 mg subcut DAILY 04/02/22 [History Last Taken Unknown] propranolol 40 mg tablet mg 04/02/22 [History Last Taken Unknown] cyclobenzaprine 10 mg tablet 10 mg PO BID PRN muscle spasm #10 tabs 04/03/22 [Rx Last Taken Unknown] hydrocodone-acetaminophen 5-325mg 5mg-325mg 1 tab PO Q6H PRN pain 3 days #10 tabs 04/03/22 [Rx Last Taken Unknown] Allergy/AdvReac Type Severity Reaction Status Date / Time gabapentin Allergy Hives Verified 04/02/22 22:48 pregabalin [From Lyrica] Allergy Hives Verified 04/02/22 22:48 tramadol [From Ultram] Allergy Rash Verified 04/02/22 22:48 adhesive tape AdvReac Rash Verified 04/02/22 22:48 duloxetine [From Cymbalta] AdvReac Hives Verified 04/02/22 22:48 NSAIDS (Non-Steroidal AdvReac Bleeding Verified 04/02/22 22:48 Anti-Inflamma Surgical History H/O: hysterectomy Social History household members: spouse Smoking Status: Current every day smoker tobacco type: cigarettes alcohol intake: current alcohol intake frequency: holidays/special occasions only substance use type: does not use ROS ROS ED Constitutional Constitutional ED: Denies fever(s) Eyes Eyes: Denies change in vision ENT ENT ED: Denies rhinorrhea Cardiovascular Cardiovascular: Denies chest pain or palpitations Respiratory/Chest Respiratory/Chest: Denies cough or dyspnea Gastrointestinal Gastrointestinal: Denies abdominal pain, nausea or vomiting Genitourinary Genitourinary ED: Denies hematuria Musculoskeletal Musculoskeletal: Reports arthralgias, back pain and other Details: See history of present illness. ; Denies neck pain Neurologic Neurologic: Denies headache(s), paresthesias or weakness Endocrine Endocrinology: Denies polydipsia or polyuria Hematologic/Lymphatic Hematologic/Lymphatic: Denies easy bleeding or easy bruising Allergic/Immunologic Allergic/Immunologic ED: Denies urticaria EXAM Physical Exam Const Vital Signs: 04/02/22 22:22 04/02/22 22:21 04/02/22 23:08 Temperature 96.7 F L 96.7 F L Temperature Source Temporal Temporal Pulse Rate 90 87 Respiratory Rate 16 19 H Blood Pressure 134/77 H 134/77 H 150/87 H Blood Pressure Mean 96 96 108 Pulse Ox 93 98 Oxygen Delivery Method Room Air Room Air Room Air Positive well nourished and well developed General Appearance ED: well developed and NAD; Negative for cyanotic or diaphoretic HEENT Reports moist mucous membranes HEENT Narrative: No sign of head trauma. Negative for trauma Eyes EOMs intact bilaterally Neck supple Neck Narrative: No cervical spine or paraspinal tenderness. General: Negative for tenderness Chest Wall inspection of chest normal Chest Narrative: No subcu air Resp normal respiratory effort Effort and Inspection: Negative for pain with movement Cardio regular rate and regular rhythm GI normal to inspection, nondistended, normoactive bowel sounds and non-tender Back/Spine Back/Spine Narrative: She does have some diffuse tenderness at the upper thoracic spine. But its not localized to a bony or 1 area. It is diffusely tender with light skin palpation. No abrasion or contusion or swelling is visible at this time. She has scar from prior surgery and nerve stimulator in the lower back but no tenderness or pain in that area. Extremity Extremity Narrative: Minimal abrasions to the left forearm but that area is not sore. She might have a minimal abrasion/red barry on the skin to the lateral proximal fibular head. There is some tenderness along this area. There is a little bit of tenderness to the greater trochanter also. No deformity. Neuro oriented x3 and no sensory deficits noted Motor Exam: strength 5/5 throughout Psych mental status grossly normal Skin Trauma: abrasion MDM MDM Radiography Diagnostic Testing: Clinical Impression(s) from Imaging Studies Femur X-Ray 04/02/22 00:01 IMPRESSION: No evidence of fracture. Electronically Signed: Virginia Ruiz MD at 0:57 EDT , Thoracic Spine X-Ray 04/02/22 23:40 IMPRESSION: No evidence of fracture or subluxation. Electronically Signed: Virginia Ruiz MD at 0:56 EDT , Tibia/Fibula X-Ray 04/02/22 23:40 IMPRESSION: No definite evidence of fracture. Suboptimal evaluation of the distal tibia/medial malleolus. Mild soft tissue swelling laterally at the ankle. Dedicated ankle series may be helpful if clinically indicated. Electronically Signed: Virginia Ruiz MD at 0:52 EDT , 4 views of the patient's tib-fib, 4 views of the femur and 3 views thoracic spine do not show any acute process. There are some changes and some optimal visualization near the ankle. But she is not having pain there. She does have a history of a partial Achilles tendon tear in that area. Discharge Plan Triage Chief Complaint: Lower Extremity Injury ED Provider: Eyal Randolph Dx/Rx/DC Orders Clinical Impression: Fall from ladder, Acute thoracic myofascial strain, Contusion of left leg Instructions: Bruises (Contusions), ED Thoracic Spine Strain Prescriptions: New hydrocodone-acetaminophen 5-325 mg tablet 1 tab PO Q6H PRN (Reason: pain) 3 Days Qty: 10 0RF cyclobenzaprine 10 mg tablet 10 mg PO BID PRN (Reason: muscle spasm) Qty: 10 0RF No Action allopurinol [Zyloprim] 100 tablet 100 mg PO DAILY propranolol 40 MG tablet 40 mg PO BID zolpidem 10 MG tablet 10 mg PO DAILY albuterol sulfate 1 PUFF inhaler 2 puff inhalation Q4H PRN PRN (Reason: Sob &/Or Wheezing) sertraline 100 MG tablet 100 mg PO DAILY omeprazole 20 mg capsule,delayed release(DR/EC) 40 mg PO DAILY Label Comments: take 2 capsules by mouth once daily fluticasone propionate 50 mcg/actuation spray,suspension 1 spray INTRANASAL DAILY Label Comments: instill 2 sprays into each nostril once daily Rinse mouth after use melatonin 10 mg Tablet 10 mg PO QHS glimepiride 2 mg tablet 2 mg PO DAILY Label Comments: take 1 tablet by mouth once daily with breakfast propranolol 40 mg tablet [employer] 3-Donnie 0.6 mg/0.1 mL (18 mg/3 mL) pen injector 1 mg SUBCUT DAILY Label Comments: inject 1.8 milligram subcutaneously daily Primary Care Provider: Barry Huggins Referrals: Barry Huggins MD [Primary Care Provider] - 3-5 Days if not improving Disposition Disposition: Home, Self Care
[2022-04-03 02:19] VITALS: BP 103/64; PULSE 87; RESP 17; O2SAT 99
[2022-04-03] MEDS: cycloBENZAPRine HCl 10 MG Tablet PO (02:28)
[2022-04-03] MEDS: HYDROcodone Bitartrate/Apap 5/325 Tablet PO (02:28)
== END 2022-04-03 03:01 | disposition home or self-care (01) ==
PROVIDERS: Emergency Provider Emergency Medicine; PCP Family Medicine; Visit Provider Emergency Medicine
DX: S29.019A Strain of muscle and tendon of unspecified wall of thorax, initial encounter (principal); E11.9 Type 2 diabetes mellitus without complications; Z79.4 Long term (current) use of insulin; S80.12XA Contusion of left lower leg, initial encounter; W11.XXXA Fall on and from ladder, initial encounter; E03.9 Hypothyroidism, unspecified; F32.9 Major depressive disorder, single episode, unspecified; M10.9 Gout, unspecified; F17.210 Nicotine dependence, cigarettes, uncomplicated; Z79.899 Other long term (current) drug therapy; Z79.84 Long term (current) use of oral hypoglycemic drugs
CPT/HCPCS: 72072; 73552; 73590; 99283

== ENCOUNTER 2022-04-25 18:07 | Emergency (ER) | payer MEDICAID, SELFPAY ==
[2022-04-25 18:08] VITALS: BP 118/66; PULSE 86; RESP 14; TEMP 36.2; O2SAT 96; BMI 33.7
--- NOTE | 2022-04-25 18:51 | EDS_ITS ---
HPI History of Present Illness HPI Narrative: Patient presents with pain to her right foot and ankle that began 4 weeks ago after falling off of a ladder. Patient was evaluated here at that time. Patient states she had x-rays done at that time which were negative. Patient states she followed up with her primary care physician who prescribed her some Toradol. Patient states this did not help. Patient went to an urgent care and had x-rays done again. Patient states that there were avulsion fractures noted on those x-rays. Patient states she was told to follow-up with an orthopedic surgeon but has not followed up with an orthopedic surgeon yet. Patient does not have an appointment with an orthopedic surgeon yet. Patient states her pain is worse with standing and with ambulation. Chief Complaint: Lower Extremity Injury Informant: patient Occured/Mechanism Mechanism/Context: Yes fall Onset/Context/Timing Onset: Weeks (4) Timing: Continuous Quality of Pain: Throbbing Location: Right foot and ankle Worsened by: Standing, ambulation Relieved by: Nothing Associated Symptoms Associated Symptoms: Negative for Parasthesia, Weakness or Loss of Funtion PFSH PFS Medical History Depression Diabetes Gout Hypothyroid Spinal cord stimulator status Home Medications albuterol sulfate 90 mcg/actuation aerosol inhaler 2 puff inhalation Q4H PRN PRN Sob &/Or Wheezing 06/23/19 [History Last Taken Unknown] allopurinol 100 mg tablet (Zyloprim) 100 mg PO DAILY 06/23/19 [History Last Taken Unknown] propranolol 40 mg tablet 40 mg PO BID 06/23/19 [History Last Taken Unknown] zolpidem 10 mg tablet 10 mg PO DAILY 06/23/19 [History Last Taken Unknown] sertraline 100 mg tablet 100 mg PO DAILY 05/13/20 [History Last Taken Unknown] fluticasone propionate 50 mcg/actuation nasal spray,suspension 1 spray intranasal DAILY 04/30/21 [History Last Taken Unknown] omeprazole 20 mg capsule,delayed release 40 mg PO DAILY 04/30/21 [History Last Taken Unknown] melatonin 10 mg tablet 10 mg PO QHS 05/08/21 [History Last Taken Unknown] glimepiride 2 mg tablet 2 mg PO DAILY 11/15/21 [History Last Taken Unknown] liraglutide 0.6 mg/0.1 mL (18 mg/3 mL) subcutaneous pen injector (Victoza 3-Donnie) 1 mg subcut DAILY 04/02/22 [History Last Taken Unknown] propranolol 40 mg tablet mg 04/02/22 [History Last Taken Unknown] cyclobenzaprine 10 mg tablet 10 mg PO BID PRN muscle spasm #10 tabs 04/03/22 [Rx Last Taken Unknown] hydrocodone-acetaminophen 5-325mg 5mg-325mg 1 tab PO Q6H PRN pain 3 days #10 tabs 04/03/22 [Rx Last Taken Unknown] hydrocodone-acetaminophen 5-325mg 5mg-325mg 1 tab PO Q6H PRN PRN Pain 3 days #10 TABLETS 04/25/22 [Rx Last Taken Unknown] Allergy/AdvReac Type Severity Reaction Status Date / Time gabapentin Allergy Hives Verified 04/25/22 18:08 pregabalin [From Lyrica] Allergy Hives Verified 04/25/22 18:08 tramadol [From Ultram] Allergy Rash Verified 04/25/22 18:08 adhesive tape AdvReac Rash Verified 04/25/22 18:08 duloxetine [From Cymbalta] AdvReac Hives Verified 04/25/22 18:08 NSAIDS (Non-Steroidal AdvReac Bleeding Verified 04/25/22 18:08 Anti-Inflamma Surgical History H/O: hysterectomy Social History household members: spouse Smoking Status: Current every day smoker tobacco type: cigarettes alcohol intake: current alcohol intake frequency: holidays/special occasions on ly substance use type: does not use ROS ROS ED Constitutional Constitutional ED: Denies chills or fever(s) Eyes Eyes: Denies blurry vision or change in vision ENT ENT ED: Denies rhinorrhea or sore throat Cardiovascular Cardiovascular: Denies chest pain or palpitations Respiratory/Chest Respiratory/Chest: Denies cough or dyspnea Gastrointestinal Gastrointestinal: Denies nausea or vomiting Genitourinary Genitourinary ED: Denies dysuria or hematuria Musculoskeletal Musculoskeletal: Reports back pain and neck pain Integumentary Denies abscess or rash Neurologic Neurologic: Denies headache(s) or weakness Allergic/Immunologic Allergic/Immunologic ED: Denies mouth swelling or urticaria EXAM Physical Exam Const Vital Signs: 04/25/22 18:08 Temperature 97.2 F L Temperature Source Temporal Pulse Rate 86 Respiratory Rate 14 Blood Pressure 118/66 Blood Pressure Mean 83 Pulse Ox 96 Oxygen Delivery Method Room Air Positive well nourished and well developed General Appearance ED: well developed and NAD HEENT Reports moist mucous membranes Neck full ROM Extremity Extremity Narrative: There is tenderness over the lateral malleolus and lateral aspect of the right foot. There is some mild edema. There is no ecchymosis. There is no deformity noted. Range of motion was limited in all motions of the right foot and ankle secondary to pain. Sensation was intact to light touch bilaterally in the lower extremities. Pedal pulses are equal bilaterally. Strength is 5/5 bilaterally in the lower extremities. Neuro oriented x3, CN's II-XII intact bilaterally, moves all extremities and no sensory deficits noted Sensorium / Orientation: alert Motor Exam: strength 5/5 throughout Psych mental status grossly normal MDM MDM MDM Narrative Medical decision making narrative: Patient was given a walking boot. Patient was instructed to ice and elevate the right foot and ankle. Patient was given a prescription for a short course of [place]. Patient was instructed to follow-up with her primary care physician in 5 to 7 days. Patient was also given referral for orthopedics for follow-up. Patient understood and was agreeable with the plan. All questions were answered. Discharge Plan Triage Chief Complaint: Lower Extremity Injury ED Provider: Cy Rob Dx/Rx/DC Orders Clinical Impression: Right foot sprain, Avulsion fracture of medial malleolus of right tibia Instructions: ED Foot Sprain Prescriptions: New hydrocodone-acetaminophen [hydrocodone-acetaminophen] 5-325 mg tablet 1 tab PO Q6H PRN PRN (Reason: Pain) 3 Days Qty: 10 0RF No Action allopurinol [Zyloprim] 100 tablet 100 mg PO DAILY propranolol 40 MG tablet 40 mg PO BID zolpidem 10 MG tablet 10 mg PO DAILY albuterol sulfate 1 PUFF inhaler 2 puff inhalation Q4H PRN PRN (Reason: Sob &/Or Wheezing) sertraline 100 MG tablet 100 mg PO DAILY omeprazole 20 mg capsule,delayed release(DR/EC) 40 mg PO DAILY Label Comments: take 2 capsules by mouth once daily fluticasone propionate 50 mcg/actuation spray,suspension 1 spray INTRANASAL DAILY Label Comments: instill 2 sprays into each nostril once daily Rinse mouth after use melatonin 10 mg Tablet 10 mg PO QHS glimepiride 2 mg tablet 2 mg PO DAILY Label Comments: take 1 tablet by mouth once daily with breakfast propranolol 40 mg tablet Victoza 3-Donnie 0.6 mg/0.1 mL (18 mg/3 mL) pen injector 1 mg SUBCUT DAILY Label Comments: inject 1.8 milligram subcutaneously daily hydrocodone-acetaminophen 5-325 mg tablet 1 tab PO Q6H PRN (Reason: pain) 3 Days Qty: 10 0RF cyclobenzaprine 10 mg tablet 10 mg PO BID PRN (Reason: muscle spasm) Qty: 10 0RF Primary Care Provider: Ezekiel Huggins Referrals: Darrius Kelly DO [Med Staff - Active Staff] - 5-7 Days Ezekiel Huggins MD [Primary Care Provider] - 3-5 Days Disposition Disposition: Home, Self Care
[2022-04-25] MEDS: HYDROcodone Bitartrate/Apap 5/325 Tablet PO (19:22)
== END 2022-04-25 19:23 | disposition home or self-care (01) ==
PROVIDERS: Emergency Provider Emergency Medicine; PCP Family Medicine; Visit Provider Emergency Medicine
DX: S82.51XA Displaced fracture of medial malleolus of right tibia, initial encounter for closed fracture (principal); E11.9 Type 2 diabetes mellitus without complications; F17.210 Nicotine dependence, cigarettes, uncomplicated; W11.XXXA Fall on and from ladder, initial encounter; F32.A Depression, unspecified; E03.9 Hypothyroidism, unspecified
CPT/HCPCS: 99283

== ENCOUNTER → 2023-05-26 | Outpatient (CLI) | payer MEDICAID, SELFPAY ==
--- NOTE | 2023-05-26 14:05 | NEURO ---
NCS and/or EMG Patient Report Ordering Doctor: Celestino Gold DATE OF SERVICE: 05/26/23 Clinical Summary: This a 52 year old female presenting with complaints of numbness, tingling, and weakness in both hands. She has a history of diabetes. This EMG/NCS was performed to evaluate for right/left carpal tunnel syndrome. Nerve Conduction Studies Summary: The median-D2 SNAP distal latency was prolonged bilaterally with reduced amplitude bilaterally. The ulnar-D5 SNAP amplitude was reduced bilaterally. The right median-APB CMAP distal latency was prolonged. The ulnar-FDI CMAP amplitude dropped significantly in the forearm segment bilaterally, which can occur in the setting of a Josias-Nehemiah anastomosis. There was median motor conduction velocity slowing bilaterally in the forearm segment. There was ulnar motor conduction velocity slowing across the elbow bilaterally. Needle Examination Summary: There was a higher proportion of motor unit action potentials with reduced recruitment, increased amplitude, increased duration, and polyphasia in the right flexor carpi ulnaris, left first dorsal interosseous, and bilateral abductor pollicis brevis muscles. 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
== END | disposition home or self-care (01) ==
LOC: PSN 12:20
PROVIDERS: PCP Family Medicine; Referring Provider Orthopaedic Surgery; Visit Provider Orthopaedic Surgery
DX: G56.03 Carpal tunnel syndrome, bilateral upper limbs (principal); E11.9 Type 2 diabetes mellitus without complications; Z79.4 Long term (current) use of insulin; M77.11 Lateral epicondylitis, right elbow
CPT/HCPCS: 95886; 95913